=== PATIENT | female | born 1960 | race Caucasian/White ===

== ENCOUNTER → 2017-01-16 14:52 | Outpatient (CLI) | payer OTHER | END | disposition home or self-care (01) | LOC: D.US 14:52 | DX: N18.3 Chronic kidney disease, stage 3 (moderate) (principal); E11.22 Type 2 diabetes mellitus with diabetic chronic kidney disease ==

== ENCOUNTER → 2018-01-08 19:28 | Outpatient (CLI) | payer OTHER | END | disposition home or self-care (01) | LOC: D.MAMMO 16:00 | DX: Z12.31 Encounter for screening mammogram for malignant neoplasm of breast (principal) ==

== ENCOUNTER → 2019-01-03 07:44 | Outpatient (CLI) | payer OTHER ==
--- NOTE | 2019-01-07 13:38 | ST ---
PATIENT:MIRLANDE MERCER MEDICAL RECORD: [id number] SEX: F LOCATION:[facility] ORDER #: ADMISSION DATE: 01/03/19 AGE OF PATIENT: 58 REFERRING PHYSICIAN: INTERPRETING PHYSICIAN: MARTIN DUMONT MD DATE OF SERVICE: 01/03/2019 PROCEDURE: Nuclear stress test. INDICATION: Angina, shortness of breath. She was exercised on standard Lexiscan protocol with 28 mCi of sestamibi injected at peak stress, 9 mCi were used previously for rest images. FINDINGS: Gated SPECT reveals preserved ejection fraction at 73% with good wall motion and thickening and brightening throughout all segments. SPECT imaging Cardiolite was used as myocardial fusion agent. There is homogeneous uptake throughout all segments at rest and stress with no evidence of inducible ischemia or previous infarction. OVERALL IMPRESSION: 1. This is a normal nuclear stress test with no evidence of inducible ischemia or previous infarction. 2. Gated SPECT reveals a preserved ejection fraction at 73%. In this patient with ongoing symptomatology, the current scan does not suggest the presence of hemodynamically significant coronary artery disease. Evaluate noncardiac etiology of chest pain. TRANSINT:[id number] Voice Confirmation ID: [id number] DOCUMENT ID: [id number] MARTIN DUMONT MD at 1338 CC: RHIANNA SILVA MD [id number] DICTATION DATE: 01/06/19 1036 OUTPATIENT CASE MANAGER: 01/07/19 0405 DEP CLI 01/03/19 [place] [id number] [place] [id number]
--- NOTE | 2019-01-07 13:38 | EC ---
PATIENT:MIRLANDE MERCER DATE OF SERVICE: 01/03/19 SEX: F MEDICAL RECORD: [id number] DATE OF : 60 [facility] AGE OF PATIENT: 58 ADMISSION DATE: 01/03/19 REFERRING PHYSICIAN: INTERPRETING PHYSICIAN: MARTIN GATICA MD ECHOCARDIOGRAM REPORT ECHO CHARGES 4 ECHO COMPLETE Date: 01/03/19 CLINICAL DIAGNOSIS: DYSPNEA HX THYROID DISEASE ECHOCARDIOGRAPHIC MEASUREMENTS (adult normal given) AC root (d.<3.7cm) 3.7 cm LV Septum d (<1.2 cm> 1.6 cm Valve Excursion 1.7 cm LV Septum (systole) 1.7 cm Left Atria (s.<4.0cm> 3.5 cm LVPW d(<1.2cm) 1.4 cm RV (d.<2.3cm) 3.2 cm LVPW (sytole) 1.6 cm LV diastole(<5.6CM) 4.0 cm MV E-F(>70mm/sec) cm LV systole 2.5 cm LVOT Diameter 1.9 cm MV exc.(>10mm) 1.2 cm Est.ejection fraction (50-75%) % DOPPLER: LVIT cm/sec A 77.0 cm/sec E 91.0 cm/sec LA cm/sec RVSP 21 mmHg LVOT 139 cm/sec AOP1/2T m/s Asc. Ao 148 cm/sec RVOT 81 cm/sec RA cm/sec PA 104 cm/sec AV Gradient Peak 8.74 mmHg AV Mean 4.95 mmHg AV Area 3.0 cm MV Gradient Peak 3.50 mmHg MV Mean 1.51 mmHg MV Area cm COMMENTS: Regulatory Services Consultant: Amilcar FRIEND Data Center Operator: 1 Dr. Gatica TAPE# PACS Pericardial Effusion N DATE OF SERVICE: FINDINGS: 1. Left ventricular chamber size is within normal limits. Left ventricular systolic function is normal at 55% to 60%. 2. Left atrium, right atrium, and right ventricular chamber sizes are within normal limits. 3. Valvular structures have normal structure and motion. 4. Doppler interrogation reveals trace mitral regurgitation, no other valvular insufficiency or stenosis. Pulmonary systolic pressure is normal, estimated at ECHOCARDIOGRAM REPORT [id number] MIRLANDE MERCER 21 mmHg. 5. No evidence of pericardial effusion or left ventricular thrombus. TRANSINT:[id number] Voice Confirmation ID: [id number] DOCUMENT ID: [id number] MARTIN GATICA MD at 1338 CC: [id number] DICTATION DATE: 01/06/19 1023 BOILER HOUSE INSPECTOR: 01/06/19 1134 DEP CLI 01/03/19 [place] [id number]
== END | disposition home or self-care (01) ==
LOC: D.HCCECHO 07:44 → D.HCCARDIO 08:30
PROVIDERS: ATTEND Internal Medicine Interventional Cardiology
DX: I20.9 Angina pectoris, unspecified (principal)

== ENCOUNTER 2019-03-26 09:00 | Outpatient (CLI) | payer OTHER | END 2019-03-26 10:00 | disposition home or self-care (01) | LOC: D.MAMMO 09:00 | PROVIDERS: ATTEND Family Medicine Adult Medicine | DX: Z12.31 Encounter for screening mammogram for malignant neoplasm of breast (principal) ==

== ENCOUNTER 2019-04-07 18:01 | Outpatient (CLI) | payer OTHER | END 2019-04-07 18:02 | disposition home or self-care (01) | LOC: D.MAMMO 18:01 | PROVIDERS: ATTEND Family Medicine Adult Medicine | DX: R92.8 Other abnormal and inconclusive findings on diagnostic imaging of breast (principal) ==